=== PATIENT | male | born 1995 | race Caucasian/White ===

== ENCOUNTER 2017-07-09 00:55 | Emergency (ER) | payer OTHER ==
[~2017-07-09] VITALS: Ht 165.1 cm; Wt 68.0 kg
[2017-07-09 01:05] VITALS: BP 158/91
--- NOTE | 2017-07-09 01:16 | NUR ---
TO ER BED 3
--- NOTE | 2017-07-09 01:18 | NUR ---
PATIENT IS A 21 Y/O MALE WHO PRESENTS TO THE ED C/O TESTICULAR PAIN. PT STATES, "I HAVE A HEADACHE AND MY GROIN HURTS." PT REPORTS 9/10 SHARP HEADACHE AND GROIN PAIN. PT DENIES CP, SOB, N/V/D. PT AAOX4, RR EVEN/UNLABORED. PT REPOSITIONED FOR COMFORT, BED IN LOWEST POSITION. ER MD DR. MARI NOTIFIED. WILL CONTINUE TO MONITOR.
[2017-07-09 01:41] LABS: APPEARANCE,URINE CLOUDY (CLEAR); BILIRUBIN,URINE NEGATIVE (NEGATIVE); BLOOD, URINE TRACE-I (NEGATIVE); COLOR,URINE YELLOW (YELLOW); LEUKOCYTE ESTERASE ,URINE 1+ (NEGATIVE); NITRITE, URINE NEGATIVE (NEGATIVE); PH,URINE 7.5 (5.0-9.0); UGLUCOSE NEGATIVE (NEGATIVE)
[2017-07-09 01:50] LABS: RBC,URINE 3-10 (FEW) /HPF (0-5); WBC,URINE TOO MANY TO COUNT /HPF (0-5)
[2017-07-09] MEDS ORDERED: KETOROLAC 30 MG/ML VIAL IM ONE (01:55)
[2017-07-09] MEDS ORDERED: cefTRIAXone 250 MG in LIDOCAINE MPF 1% - **ER/OR** 0.9 ML IM ONE (01:55)
[2017-07-09] MEDS ORDERED: AZITHROMYCIN 250 MG TAB PO ONE (02:00)
--- NOTE | 2017-07-09 02:45 | NUR ---
Male Drafter [employer] accompanied male patient for Ultrasound.
--- NOTE | 2017-07-09 02:49 | NUR ---
u/s at bedside with arianna lopez.
--- NOTE | 2017-07-09 03:36 | NUR ---
PATIENT RESTING AT THIS TIME. FAMILY AT BEDSIDE.
--- NOTE | 2017-07-09 04:40 | NUR ---
Patient discharged with v/s stable. Written and verbal after care instructions given and explained. Patient alert, oriented and verbalized understanding of instructions. Ambulatory with steady gait. All questions addressed prior to discharge. ID band removed. Patient advised to follow up with PMD. Rx of TYLENOL NO.3, DOXYCYCLINE 100 MG, NAPROSYN 500 MG given. Patient educated on indication of medication including possible reaction and side effects. Opportunity to ask questions provided and answered.
[2017-07-09 04:41] VITALS: BP 142/81
[2017-07-13 06:23] LABS: CHLAMYDIA TRACHOMATIS AMP DNA Negative (Negative)
--- NOTE | 2017-07-13 14:29 | NUR ---
LAB REPORTED POSITIVE GONORRHOEAE---SPECIMEN COLLECTED 07/09/2017 WAS TREATED WITH AZITHROMYCIN 1GM PO, ROCEPHIN 250MG IM, AND RX DOXYCYCLINE 100MG PO ---INFORMED OF POSITIVE GONORRHOEAE RESULTS. APPRORIATE TREATMENT PROVIDED, NO CHANGE OR ADDITION REQUIRED PER .
== END 2017-07-09 04:40 | disposition home or self-care (01) ==
LOC: MED 00:55
DX: N45.1 Epididymitis (principal); Z90.89 Acquired absence of other organs; F12.90 Cannabis use, unspecified, uncomplicated; F19.90 Other psychoactive substance use, unspecified, uncomplicated
CPT/HCPCS: 36415; 76870; 81001; 87086; 96372; 99285; J0696; J1885; J2001; Q0092; 87491

== ENCOUNTER 2022-07-16 01:27 | Emergency (ER) | payer OTHER ==
--- NOTE | 2022-07-16 01:47 | NUR ---
PATIENT LEFT WITHOUT BEING SEEN BY DR. MARI. NO FURTHER CARE PROVIDED FOR PATIENT.
--- NOTE | 2022-07-16 01:47 | NUR ---
1ST CALL FOR PATIENT TO TRIAGE WITH NO ANSWER.
--- NOTE | 2022-07-16 01:55 | NUR ---
CALLED FOR THE SECOND TIME, NO RESPONSE
--- NOTE | 2022-07-16 02:00 | NUR ---
CALLED FOR THE THIRD TIME, NO RESPONSE
== END 2022-07-16 01:47 | disposition left against medical advice (07) ==
LOC: MED 01:27
DX: R10.9 Unspecified abdominal pain (principal); Z53.21 Procedure and treatment not carried out due to patient leaving prior to being seen by health care provider